=== PATIENT | female | born 1985 | race Caucasian/White ===

== ENCOUNTER 2016-05-12 11:52 | Emergency (ER) | payer SELFPAY ==
--- NOTE | 2016-05-12 13:06 | ED.PDOC ---
History of Present Illness - General Chief Complaint: Back Pain or Injury Stated Complaint: ran out of medications Time Seen by Provider: 05/12/16 13:03 Source: patient Exam Limitations: no limitations - History of Present Illness Initial Comments: Stated has chronic back pain due to scoliosis and ran out of medication stated just visiting here in town. Timing/Duration: other - chronic back ache has history of scoliosis Quality/Severity: moderate, radiation - none, sharpness Back Pain Location: T-spine, lumbar spine Method of Injury/Prior Injury: other - history of scoliosis Improving Factors: rest Worsening Factors: movement Associated Symptoms: muscle spasms Allergies/Adverse Reactions: Allergies Penicillins Allergy (Unknown, Verified 11/28/14 11:34) Home Medications: Ambulatory Orders Ondansetron [Zofran Odt] 4 mg PO BID PRN #7 tab 11/28/14 Acetaminophen W/ Codeine [Tylenol w/Codeine 300-30 mg] 1 tab PO Q6HRS PRN #10 tab 05/12/16 Cyclobenzaprine HCl [Flexeril] 5 mg PO BID PRN #10 tab 05/12/16 Review of Systems - Review of Systems Constitutional: States: no symptoms reported EENTM: States: no symptoms reported Respiratory: States: no symptoms reported Cardiology: States: no symptoms reported Gastrointestinal/Abdominal: States: no symptoms reported Genitourinary: States: other - no bowel or bladder dysfunction Musculoskeletal: States: back pain - chronic due to scoliosis Skin: States: no symptoms reported Neurological: States: no symptoms reported Endocrine: States: no symptoms reported Hematologic/Lymphatic: States: no symptoms reported Past Medical History (General) - Patient Medical History Hx Seizures: No Hx Stroke: No Hx Dementia: No Hx Asthma: No Hx of COPD: No Hx Cardiac Disorders: No Hx Congestive Heart Failure: No Hx Pacemaker: No Hx Hypertension: No Hx Thyroid Disease: No Hx Diabetes: No Hx Gastroesophageal Reflux: No Hx Renal Disease: No Hx Cancer: No Hx of HIV: No Hx Hepatitis C: No Hx MRSA: No Surgical History: no surgical history - Vaccination History Hx Tetanus, Diphtheria Vaccination: No Hx Influenza Vaccination: No Hx Pneumococcal Vaccination: No - Social History Hx Tobacco Use: No Hx Chewing Tobacco Use: No Hx Alcohol Use: No Hx Substance Use: No Hx Substance Use Treatment: No Hx Depression: No Hx Physical Abuse: No Hx Emotional Abuse: No - Female History Patient is a Female of Child Bearing Age (10 -59 yrs old): Yes Hx Last Menstrual Period: 05/12/16 - Patient on hormone therapy for DUB Patient : No Expected Date of Delivery:: 11/10/13 Family Medical History - Family History Mother Family History: No Known Living Status: Still Living Physical Exam - Physical Exam General Appearance: Alert, Comfortable, No apparent distress, Other - ambulatory Eyes, Ears, Nose, Throat Exam: PERRL/EOMI, normal ENT inspection, TMs normal, pharynx normal Neck Exam: non-tender, full range of motion, normal alignment, normal inspection Cardiovascular/Respiratory: regular rate, rhythm, no M/R/G, normal peripheral pulses, no JVD, normal breath sounds Peripheral Pulses: radial,right: 2+, radial,left: 2+ Gastrointestinal/Abdominal: normal bowel sounds, non tender, soft Back Exam: no CVA tenderness, no vertebral tenderness, muscle spasm - mild Extremity Exam: no evidence of injury, normal range of motion, non-tender Neurologic: no motor/sensory deficits, alert, normal mood/affect, oriented x 3 Skin Exam: normal color, warm/dry Departure - Departure Clinical Impression: Back ache Qualifiers: Back pain location: low back pain Back pain laterality: unspecified Sciatica presence: without sciatica Qualifier Code: (M54.5) Low back pain Scoliosis, unspecified Qualifiers: Scoliosis type: unspecified scoliosis Spinal region: thoracolumbar Qualifier Code: (M41.9) Scoliosis, unspecified Time of Disposition: 13:22 Disposition: Discharge to Home or Self Care Condition: Good Referrals: Sunny Cooley MD [Primary Care Provider] - 1-2 Weeks Prescriptions: Acetaminophen W/ Codeine [Tylenol w/Codeine 300-30 mg] 1 tab PO Q6HRS PRN #10 tab PRN Reason: Pain Cyclobenzaprine HCl [Flexeril] 5 mg PO BID PRN #10 tab PRN Reason: Muscle Spasms Home Medications: Ambulatory Orders Ondansetron [Zofran Odt] 4 mg PO BID PRN #7 tab 11/28/14 Acetaminophen W/ Codeine [Tylenol w/Codeine 300-30 mg] 1 tab PO Q6HRS PRN #10 tab 05/12/16 Cyclobenzaprine HCl [Flexeril] 5 mg PO BID PRN #10 tab 05/12/16
[2016-05-12 14:50] VITALS: BP 114/81; TEMP 97.2; O2SAT 97
== END 2016-05-12 14:51 | disposition home or self-care (01) ==
LOC: ER 11:52
DX: Z76.0 Encounter for issue of repeat prescription (principal); M41.9 Scoliosis, unspecified; M54.5 Low back pain; Z79.899 Other long term (current) drug therapy; Z88.0 Allergy status to penicillin

== ENCOUNTER 2016-09-26 02:41 | Emergency (ER) | payer MEDICAID ==
[2016-09-26 03:04] VITALS: O2SAT 99
[2016-09-26] MEDS: KETOROLAC TROMETHAMINE INJ 30 MG/ML VIAL IV ONE (03:48)
[2016-09-26] MEDS: FLUCONAZOLE 100 MG TAB PO ONE (03:48)
--- NOTE | 2016-09-26 04:21 | RAD ---
Procedure: XR ABDOMEN 2 VIEWS SUPINE ERECT Exam Date: 09/26/2016 Ordering Provider: Yair Aldridge Clinical Indication: pelvic pain 3 days Comparison: None Findings: Upright chest x-ray: Cardiac size is normal. Pulmonary vasculature is normal. Mediastinal and aortic contour normal. There is no consolidation or effusion. Flat and upright abdomen: There is no small or large bowel distention. There is no pneumoperitoneum. There are no suspicious calcifications. Pelvic phleboliths. There is no acute skeletal abnormality. Impression: 1. No acute findings. Electronically signed by: Morgan Levine MD 09/26/2016 4:21 AM CDT
[2016-09-26] MEDS ORDERED: LIDOCAINE 1% 10 ML VIAL INJ ONE (04:38)
--- NOTE | 2016-09-26 04:38 | ED.PDOC ---
History of Present Illness - General Chief Complaint: Abdominal Pain Stated Complaint: left abd pain Time Seen by Provider: 09/26/16 03:05 Source: patient Exam Limitations: no limitations - History of Present Illness Initial Comments: the patient is a 31-year-old female presenting to the emergency room secondary to pelvic pain for the last week. Possible mild increase in discharge. No fevers. No back pain. The pain is a little worseslightly to the left of midline at the right. She did have a day or 2 of diarrhea a couple of weeks ago and was given azithromycin for that. She's not had any further diarrhea. No fever. No dysuria. No frequency. Timing/Duration: 1 week Severity: moderate Improving Factors: nothing Worsening Factors: nothing Associated Symptoms: denies symptoms Allergies/Adverse Reactions: Allergies Penicillins Allergy (Unknown, Verified 11/28/14 11:34) Home Medications: Ambulatory Orders Ondansetron [Zofran Odt] 4 mg PO BID PRN #7 tab 11/28/14 Acetaminophen W/ Codeine [Acetaminophen/Codeine Stone] 1 tab PO Q6HR PRN 05/12/16 Cyclobenzaprine HCl 5 mg PO BID 05/12/16 Doxycycline Hyclate 100 mg PO BID #20 cap 09/26/16 Metronidazole 500 mg PO BID #20 tab 09/26/16 Review of Systems - Review of Systems Constitutional: States: no symptoms reported EENTM: States: no symptoms reported Respiratory: States: no symptoms reported Cardiology: States: no symptoms reported Gastrointestinal/Abdominal: States: abdominal pain Genitourinary: States: see HPI, pain Musculoskeletal: States: no symptoms reported Skin: States: no symptoms reported Neurological: States: no symptoms reported Endocrine: States: no symptoms reported All other Systems: No Change from Baseline Past Medical History (General) - Patient Medical History Hx Seizures: No Hx Stroke: No Hx Dementia: No Hx Asthma: No Hx of COPD: No Hx Cardiac Disorders: No Hx Congestive Heart Failure: No Hx Pacemaker: No Hx Hypertension: No Hx Thyroid Disease: No Hx Diabetes: No Hx Gastroesophageal Reflux: No Hx Renal Disease: No Hx Cancer: No Hx of HIV: No Hx Hepatitis C: No Hx MRSA: No Surgical History: appendectomy, other - Vaccination History Hx Tetanus, Diphtheria Vaccination: No Hx Influenza Vaccination: No Hx Pneumococcal Vaccination: No - Social History Hx Tobacco Use: Yes Hx Chewing Tobacco Use: No Hx Alcohol Use: No Hx Substance Use: No Hx Substance Use Treatment: No Hx Depression: No Hx Physical Abuse: No Hx Emotional Abuse: No Hx Suspected Abuse: No - Female History Hx Last Menstrual Period: 06/07/16 Patient : No Expected Date of Delivery:: 11/10/13 Family Medical History - Family History Mother Family History: No Known Living Status: Still Living Physical Exam - Physical Exam General Appearance: Alert, Comfortable, No apparent distress Eye Exam: bilateral normal Ears, Nose, Throat: hearing grossly normal, normal ENT inspection, normal pharynx Neck: full range of motion Respiratory: lungs clear, normal breath sounds, no respiratory distress, no accessory muscle use Cardiovascular/Chest: normal peripheral pulses, regular rate, rhythm, no edema Peripheral Pulses: radial,right: 2+, radial,left: 2+, dorsalis pedis,right: 2+, dorsalis pedis,left: 2+, posterior tibialis,right: 2+, posterior tibialis,left: 2+ Gastrointestinal/Abdominal: soft, other - the patient does have some discomfort to palpation over the suprapubic region a little more to the left ventricular right. No definite rebound or peritoneal signs. Rectal Exam: other - pelvic exam shows an obvious yeast infection. Mild cervical motion tenderness. The fundus is uncomfortable to palpation and is slightly tilted to the left. no definite palpable mass is found. 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 She has tested positive here for a yeast infection as well as Trichomonas and possibly bacterial vaginosis. Gonorrhea and chlamydia tests are send out tests. She is being treated empirically with a dose of Rocephin and being started on metronidazole and doxycycline. She will be placed on doxycycline and metronidazole for 10 days. She does need a test of cure with her primary care doctor before resuming sexual activity. Her partner needs to be tested and treated as well. If discomfort fails to improve with treatment then the patient will need additional imaging in the form of a pelvic ultrasound. She does understand this. She does have a history of ovarian cyst and irregular menses. She should follow up with her primary care doctor in a couple of days. ER warnings were given for any acute worsening. - Results/Orders Results/Orders: Laboratory Tests 09/26/16 09/26/16 09/26/16 03:00 03:00 03:09 WBC RBC Hgb Hct MCV MCH MCHC RDW Plt Count MPV Absolute Neuts (auto) Absolute Lymphs (auto) Absolute Monos (auto) Absolute Eos (auto) Absolute Basos (auto) Neutrophils % Lymphocytes % Monocytes % Eosinophils % Basophils % Sodium 136 Potassium 3.4 L Chloride 103 Carbon Dioxide 25 Anion Gap 11.4 L BUN 10 Creatinine 0.62 BUN/Creatinine Ratio 16.1 Random Glucose 86 Serum Osmolality 270.3 L Calcium 9.2 Total Bilirubin 0.9 AST 19 ALT 20 Alkaline Phosphatase 57 Serum Total Protein 7.3 Albumin 4.4 Globulin 2.9 Albumin/Globulin Ratio 1.5 Amylase 62 Lipase 31 Urine Color Yellow Urine Appearance Clear Urine pH 6.0 Ur Specific [place] <= 1.005 Urine Protein Negative Urine Glucose (UA) Negative Urine Ketones Negative Urine Blood Negative Urine Nitrite Negative Urine Bilirubin Negative Urine Urobilinogen 0.2 Ur Leukocyte Esterase Negative Urine RBC 0 Urine WBC 0-1 Ur Epithelial Cells 0 Urine Bacteria Rare Urine HCG, Qual Negative 09/26/16 03:10 WBC 12.5 H RBC 4.68 Hgb 14.6 Hct 42.9 MCV 91.8 MCH 31.2 H MCHC 34.0 RDW 13.8 Plt Count 194 MPV 9.1 Absolute Neuts (auto) 7.70 H Absolute Lymphs (auto) 3.80 H Absolute Monos (auto) 0.80 Absolute Eos (auto) 0.10 Absolute Basos (auto) 0.10 Neutrophils % 61.7 Lymphocytes % 30.9 Monocytes % 6.1 Eosinophils % 0.9 L Basophils % 0.4 Sodium Potassium Chloride Carbon Dioxide Anion Gap BUN Creatinine BUN/Creatinine Ratio Random Glucose Serum Osmolality Calcium Total Bilirubin AST ALT Alkaline Phosphatase Serum Total Protein Albumin Globulin Albumin/Globulin Ratio Amylase Lipase Urine Color Urine Appearance Urine pH Ur Specific [place] Urine Protein Urine Glucose (UA) Urine Ketones Urine Blood Urine Nitrite Urine Bilirubin Urine Urobilinogen Ur Leukocyte Esterase Urine RBC Urine WBC Ur Epithelial Cells Urine Bacteria Urine HCG, Qual wet prep is positive for Trichomonas, clue cells, and fungal components. GC chlamydia are sent out labs Departure - Departure Clinical Impression: Pelvic inflammatory disease, Trichomonal vaginitis Disposition: Discharge to Home or Self Care Condition: Fair Departure Forms: ED Discharge - Pt. Copy, Patient Portal Self Enrollment Instructions: DI for Pelvic Inflammatory Disease, DI for Trichomoniasis, DI for Vaginal Yeast Infection Diet: regular diet Activity: other - pelvic rest Prescriptions: Doxycycline Hyclate 100 mg PO BID #20 cap Metronidazole 500 mg PO BID #20 tab Home Medications: Ambulatory Orders Ondansetron [Zofran Odt] 4 mg PO BID PRN #7 tab 11/28/14 Acetaminophen W/ Codeine [Acetaminophen/Codeine Stone] 1 tab PO Q6HR PRN 05/12/16 Cyclobenzaprine HCl 5 mg PO BID 05/12/16 Doxycycline Hyclate 100 mg PO BID #20 cap 09/26/16 Metronidazole 500 mg PO BID #20 tab 09/26/16 Additional Instructions: the patient is a 31-year-old female presenting with what appears to be vaginitis and mild pelvic inflammatory disease. She has tested positive here for a yeast infection as well as Trichomonas and possibly bacterial vaginosis. Gonorrhea and chlamydia tests are send out tests. She is being treated empirically with a dose of Rocephin and being started on metronidazole and doxycycline. She will be placed on doxycycline and metronidazole for 10 days. She does need a test of cure with her primary care doctor before resuming sexual activity. Her partner needs to be tested and treated as well. If discomfort fails to improve with treatment then the patient will need additional imaging in the form of a pelvic ultrasound. She does understand this. She does have a history of ovarian cyst and irregular menses. She should follow up with her primary care doctor in a couple of days. ER warnings were given for any acute worsening. she does need to take the antibiotics with food to prevent stomach upset and avoid alcohol intake while on the antibiotics.
[2016-09-26] MEDS: metroNIDAZOLE 500 MG TAB PO ONE (04:45)
[2016-09-26] MEDS: DOXYCYCLINE HYCLATE CAP 100 MG CAP PO ONE (04:45)
[2016-09-26 04:54] VITALS: BP 119/71
[2016-09-26 05:17] VITALS: TEMP 97.8
== END 2016-09-26 05:16 | disposition home or self-care (01) ==
LOC: ER 02:41
DX: A59.01 Trichomonal vulvovaginitis (principal); N73.9 Female pelvic inflammatory disease, unspecified; Z87.891 Personal history of nicotine dependence; Z88.0 Allergy status to penicillin
CPT/HCPCS: 36415; 74020; 80053; 81001; 81025; 82150; 83690; 85025; 87210; 87491; 87591; J0696; J1885

== ENCOUNTER → 2016-11-02 | Outpatient (CLI) | payer MEDICAID ==
--- NOTE | 2016-11-05 20:07 | RAD ---
EXAM DESCRIPTION: Knee,Right 2 or More Views CLINICAL HISTORY: PAIN IN RT KNEE COMPARISON: None. TECHNIQUE: 3 views right FINDINGS: Minimal calcification is observed anterior and superior to the patella. No evidence of fracture is seen. No true joint effusion is detected. IMPRESSION: Minimal degenerative changes are observed. No fracturing is detected. Electronically signed by: Angelito King MD 11/05/2016 8:06 PM CDT Workstation: [id number]
== END | disposition home or self-care (01) ==
LOC: RAD 11:33
PROVIDERS: ATTEND Nurse Practitioner Family
DX: M25.561 Pain in right knee (principal)

== ENCOUNTER → 2016-11-24 | Outpatient (CLI) | payer OTHER | END | disposition home or self-care (01) | LOC: LAB.O 08:37 | DX: M25.562 Pain in left knee (principal); Z13.220 Encounter for screening for lipoid disorders; F32.9 Major depressive disorder, single episode, unspecified; R73.09 Other abnormal glucose ==

== ENCOUNTER → 2016-12-08 | Outpatient (CLI) | payer OTHER ==
--- NOTE | 2016-12-08 15:48 | US ---
EXAM DESCRIPTION: Gall Bladder CLINICAL HISTORY: 31 years Female, R10.11 COMPARISON: None. November 28, 2014 TECHNIQUE: Limited Abdominal Ultrasound FINDINGS: Limited abdominal sonography demonstrates a normal-appearing pancreas. The liver is homogeneous and echogenic and modestly enlarged at 17.5 cm consistent with fatty infiltration of the liver. Focal cystic or solid mass is not apparent. The gallbladder is normally distended with 2.4 mm gallbladder wall and 5.6 mm common duct. No stones or tenderness was noted. The right kidney measures 11.7 cm in length without cyst or mass or obstruction. Region of the vena cava is normal. No right upper quadrant ascites is noted. IMPRESSION: Hepatomegaly with diffuse fatty infiltration with otherwise normal right upper quadrant sonography. Electronically signed by: Blaine David MD 12/08/2016 3:46 PM CDT
== END | disposition home or self-care (01) ==
LOC: LAB.O 15:03
PROVIDERS: ATTEND Nurse Practitioner Family
DX: R10.11 Right upper quadrant pain (principal)

== ENCOUNTER 2016-12-10 17:59 | Emergency (ER) | payer OTHER ==
[2016-12-10] MEDS ORDERED: SODIUM CHLORIDE 0.9% 1000ML 1,000 ML ONE (19:45)
--- NOTE | 2016-12-10 20:14 | ED.PDOC ---
History of Present Illness - General Chief Complaint: Problem Stated Complaint: Continued ill feeling w/kidney infection Time Seen by Provider: 12/10/16 20:09 Source: patient Exam Limitations: no limitations - History of Present Illness Initial Comments: Bindu David 31 y/o female stated that she painful urination and right sharp low back pain 3 days ago and seen md treated for bladder infection with bactrim but stated not feeling better this time with low grade fever decided to come here. Timing/Duration: other - 3 days ago Quality: moderate Onset Location: suprapubic, right flank Radiation: none Activites at Onset: none Prior abdominal problems: none Sexual intercourse history: single partner Improving Factors: nothing Worsening Factors: nothing Associated Symptoms: denies symptoms Allergies/Adverse Reactions: Allergies Penicillins Allergy (Unknown, Verified 12/10/16 19:11) Home Medications: Ambulatory Orders Gabapentin 12/10/16 Sertraline HCl [Zoloft] 150 mg PO DAILY 12/10/16 Tramadol HCl 12/10/16 levoFLOXacin [Levaquin] 500 mg PO QDPC #10 tab 12/10/16 Review of Systems - Review of Systems Constitutional: States: see HPI EENTM: States: no symptoms reported Respiratory: States: no symptoms reported, cough Gastrointestinal/Abdominal: States: no symptoms reported Genitourinary: States: see HPI Past Medical History (General) - Patient Medical History Hx Seizures: No Hx Stroke: No Hx Dementia: No Hx Asthma: No Hx of COPD: No Hx Cardiac Disorders: No Hx Congestive Heart Failure: No Hx Pacemaker: No Hx Hypertension: No Hx Thyroid Disease: No Hx Diabetes: No Hx Gastroesophageal Reflux: No Hx Renal Disease: No Hx Cancer: No Hx of HIV: No Hx Hepatitis C: No Hx MRSA: No Surgical History: appendectomy, other - hysterectomy - Vaccination History Hx Tetanus, Diphtheria Vaccination: Yes Hx Influenza Vaccination: No Hx Pneumococcal Vaccination: Yes - Social History Hx Tobacco Use: Yes Hx Chewing Tobacco Use: No Hx Alcohol Use: No Hx Substance Use: No Hx Substance Use Treatment: No Hx Depression: No Hx Physical Abuse: No Hx Emotional Abuse: No Hx Suspected Abuse: No - Female History Patient is a Female of Child Bearing Age (10 -59 yrs old): Yes Hx Last Menstrual Period: 06/07/16 Patient : No Expected Date of Delivery:: 11/10/13 Family Medical History - Family History Mother Family History: No Known Living Status: Still Living Physical Exam - Physical Exam General Appearance: Alert, Comfortable, No apparent distress Eyes, Ears, Nose, Throat Exam: PERRL/EOMI, normal ENT inspection, pharynx normal Neck: non-tender, supple Cardiovascular/Respiratory: regular rate, rhythm, normal peripheral pulses, normal breath sounds Gastrointestinal/Abdominal: normal bowel sounds, non tender, soft, no organomegaly Back Exam: no vertebral tenderness, CVA tenderness (R) Extremity: non-tender, no pedal edema Neurologic: alert, oriented x 3 Skin Exam: normal color, warm/dry Lymphatic: no adenopathy Progress - Progress Progress: 12/10/16 20:23 Vital Signs - 8 hr 12/10/16 18:25 Temperature 100.9 F H Pulse Rate [ 129 H Left Radial] Respiratory 22 Rate Blood Pressure 137/89 [Left Arm] O2 Sat by Pulse 100 Oximetry - Results/Orders Results/Orders: Laboratory Tests 12/10/16 12/10/16 12/10/16 18:55 18:55 19:33 WBC 9.8 RBC 4.10 L Hgb 12.8 Hct 37.3 MCV 90.9 MCH 31.2 H MCHC 34.5 RDW 13.0 Plt Count 132 MPV 9.5 Absolute Neuts (auto) 8.70 H Absolute Lymphs (auto) 0.60 L Absolute Monos (auto) 0.50 Absolute Eos (auto) 0.00 Absolute Basos (auto) 0.00 Neutrophils % 88.7 H Lymphocytes % 6.1 L Monocytes % 4.8 Eosinophils % 0.1 L Basophils % 0.3 Sodium 136 Potassium 3.7 Chloride 102 Carbon Dioxide 26 Anion Gap 11.7 L Lactic Acid Calcium 9.2 Urine Color Yellow Urine Appearance Cloudy Urine pH 5.5 Ur Specific [place] 1.015 Urine Protein 100 H Urine Glucose (UA) Negative Urine Ketones Negative Urine Blood Moderate H Urine Nitrite Positive H Urine Bilirubin Negative Urine Urobilinogen 1.0 Ur Leukocyte Esterase Large H Urine RBC 1-3 Urine WBC >100 H Ur Epithelial Cells 1-3 Urine Bacteria 2+ H 12/10/16 20:40 WBC RBC Hgb Hct MCV MCH MCHC RDW Plt Count MPV Absolute Neuts (auto) Absolute Lymphs (auto) Absolute Monos (auto) Absolute Eos (auto) Absolute Basos (auto) Neutrophils % Lymphocytes % Monocytes % Eosinophils % Basophils % Sodium Potassium Chloride Carbon Dioxide Anion Gap Lactic Acid 1.6 Calcium Urine Color Urine Appearance Urine pH Ur Specific [place] Urine Protein Urine Glucose (UA) Urine Ketones Urine Blood Urine Nitrite Urine Bilirubin Urine Urobilinogen Ur Leukocyte Esterase Urine RBC Urine WBC Ur Epithelial Cells Urine Bacteria - EKG/XRAY/CT CT Ordered: Yes - Abd/p-mild perinephric kidney stranding;thickened urinary bladder Departure - Departure Clinical Impression: Urinary tract infection Qualifiers: Urinary tract infection type: site unspecified Hematuria presence: without hematuria Qualified Code(s): N39.0 - Urinary tract infection, site not specified Time of Disposition: 21:13 Disposition: Discharge to Home or Self Care Departure Forms: ED Discharge - Pt. Copy, Patient Portal Self Enrollment Instructions: Urinary Tract Infection, DI for Urinary Tract Infection (UTI) Referrals: Sue Lange C[employer] PRESS OPERATOR [Primary Care Provider] - 1-2 Weeks Prescriptions: levoFLOXacin [Levaquin] 500 mg PO QDPC #10 tab Home Medications: Ambulatory Orders Gabapentin 12/10/16 Sertraline HCl [Zoloft] 150 mg PO DAILY 12/10/16 Tramadol HCl 12/10/16 levoFLOXacin [Levaquin] 500 mg PO QDPC #10 tab 12/10/16 Additional Instructions: Follow up with primary md 12/12/2016 call for appointment;Tylenol 500 mg every 6 hours as needed for fever;Return to to emergency room if not better in 48 hours
[2016-12-10] MEDS ORDERED: levoFLOXacin 750MG IV 750 MG in PREMIX BAG 1 BAG IVPB ONE (20:17)
[2016-12-10] MEDS ORDERED: SODIUM CHLORIDE 0.9% 1000ML 1,000 ML IVS ONE (20:18)
--- NOTE | 2016-12-10 20:45 | CT ---
EXAM: CT abdomen and pelvis without contrast. INDICATION: Abdominal pain, acute. TECHNIQUE: Contiguous axial CT images of the abdomen and pelvis. Intravenous contrast: Absent. Oral contrast: Absent. Protocol: Renal stone. DLP 754 mGy-cm. This exam was performed according to our departmental dose-optimization program, which includes automated exposure control, adjustment of the mA and/or kV according to patient size and/or use of iterative reconstruction technique. COMPARISON: None. FINDINGS: Lower chest: Partially imaged. Lung bases: Unremarkable. Cardiac apex: Unremarkable. Solid abdominal viscera: Limited by lack of intravenous contrast. Liver: Unremarkable. Gallbladder: Unremarkable. Pancreas: Unremarkable. Spleen: Unremarkable. Adrenal glands: Unremarkable. Right kidney: No urolithiasis or hydronephrosis. There is mild, nonspecific stranding along the lower pole of the kidney. Left kidney: No urolithiasis or hydronephrosis. There is mild, nonspecific perinephric stranding. Urinary bladder: The schmidt of the urinary bladder measuring up to 7 mm in thickness Abdominal aorta: Unremarkable. Peritoneal: Free fluid: Trace Free air: None. Other: No pathologic sized lymph nodes in the upper abdomen. Bowel: Stomach: Unremarkable. Small bowel: Unremarkable. Appendix: Appendectomy Colon: Unremarkable. Rectum: Unremarkable. Uterus: Unremarkable. Bones: Unremarkable. IMPRESSION: Thickening of the urinary bladder, likely due to cystitis. Mild stranding along the lower pole of the right kidney and around most of the left kidney. These findings are nonspecific and may be related to pyelonephritis. Electronically signed by: Brad Morales MD 12/10/2016 8:44 PM CDT Workstation: [id number]
[2016-12-10] MEDS ORDERED: PROMETHAZINE HCL INJ 25 MG/ML VIAL IM ONE (21:11)
[2016-12-10] MEDS ORDERED: PROMETHAZINE TAB (ER DISP) 25 MG TAB PO ONE (21:12)
[2016-12-10] MEDS ORDERED: HYDROCOD/APAP 7.5/325 (ER DISP) #3 TAB PO ONE (21:12)
[2016-12-10 21:43] VITALS: BP 108/70; TEMP 103.9; O2SAT 98
== END 2016-12-10 21:45 | disposition home or self-care (01) ==
LOC: ER 17:59
DX: N39.0 Urinary tract infection, site not specified (principal); Z87.891 Personal history of nicotine dependence; Z88.0 Allergy status to penicillin
CPT/HCPCS: 36415; 74176; 80053; 81001; 83605; 85025; 86140; 87086; 87088; 87186; J1956; J2550; J7030; Q0169

== ENCOUNTER 2017-01-29 18:38 | Emergency (ER) | payer OTHER ==
[2017-01-29 19:40] VITALS: TEMP 98.3; O2SAT 98
--- NOTE | 2017-01-29 19:41 | ED.PDOC ---
History of Present Illness - General Chief Complaint: GI Problem Stated Complaint: diarrhea Time Seen by Provider: 01/29/17 19:40 Source: patient - History of Present Illness Initial Comments: Bindu David 31 y/o female stated that she had watery diarrhea multiple times since this am with abdominal cramps no nausea vomiting ate barbecue last night.No illcontact,no recent antibiotics,no travel outside country. Timing/Duration: constant Severity: moderate Improving Factors: nothing Worsening Factors: eating Associated Symptoms: other - see hpi Allergies/Adverse Reactions: Allergies Penicillins Allergy (Unknown, Verified 01/29/17 19:40) Home Medications: Ambulatory Orders Gabapentin 12/10/16 Sertraline HCl [Zoloft] 150 mg PO DAILY 12/10/16 Tramadol HCl 12/10/16 Hyoscyamine Sulfate [Levsin] 0.125 mg PO QID PRN #14 tab 01/29/17 Review of Systems - Review of Systems Constitutional: States: no symptoms reported EENTM: States: no symptoms reported Respiratory: States: no symptoms reported Cardiology: States: no symptoms reported Gastrointestinal/Abdominal: States: see HPI, diarrhea Genitourinary: States: no symptoms reported Past Medical History (General) - Patient Medical History Hx Seizures: No Hx Stroke: No Hx Dementia: No Hx Asthma: No Hx of COPD: No Hx Cardiac Disorders: No Hx Congestive Heart Failure: No Hx Pacemaker: No Hx Hypertension: No Hx Thyroid Disease: No Hx Diabetes: No Hx Gastroesophageal Reflux: No Hx Renal Disease: No Hx Cancer: No Hx of HIV: No Hx Hepatitis C: No Hx MRSA: No Surgical History: appendectomy, other - hysterectomy - Vaccination History Hx Tetanus, Diphtheria Vaccination: Yes Hx Influenza Vaccination: No Hx Pneumococcal Vaccination: No - Social History Hx Tobacco Use: Yes Hx Chewing Tobacco Use: No Hx Alcohol Use: No Hx Substance Use: No Hx Substance Use Treatment: No Hx Depression: No Hx Physical Abuse: No Hx Emotional Abuse: No Hx Suspected Abuse: No - Female History Hx Last Menstrual Period: 06/07/16 Patient : No Expected Date of Delivery:: 11/10/13 - Triage Comment ED Triage Comment: diarrhea "like dark water" today. abdominal pain Family Medical History - Family History Mother Family History: No Known Living Status: Still Living Physical Exam - Physical Exam General Appearance: Alert, No apparent distress Eye Exam: bilateral normal Ears, Nose, Throat: hearing grossly normal, normal pharynx Neck: non-tender, supple Respiratory: lungs clear, normal breath sounds Cardiovascular/Chest: normal peripheral pulses, regular rate, rhythm Peripheral Pulses: radial,right: 2+, radial,left: 2+ Gastrointestinal/Abdominal: normal bowel sounds, non tender, soft Back Exam: no CVA tenderness, no vertebral tenderness Neurologic: alert, normal mood/affect, oriented x 3 Skin Exam: normal color, warm/dry Lymphatic: no adenopathy Progress - Progress Progress: 01/29/17 23:19 Vital Signs - 8 hr 01/29/17 01/29/17 19:37 21:00 Temperature 98.3 F Pulse Rate [ 96 H 78 Left] Respiratory 18 18 Rate Blood Pressure 109/88 110/79 [Right Arm] O2 Sat by Pulse 98 Oximetry Departure - Departure Clinical Impression: Diarrhea Qualifiers: Diarrhea type: unspecified type Qualified Code(s): R19.7 - Diarrhea, unspecified Time of Disposition: 23:20 Disposition: Discharge to Home or Self Care Condition: Good Departure Forms: ED Discharge - Pt. Copy, Patient Portal Self Enrollment Instructions: Diarrhea (Alternative Therapy), Diarrhea, DI for Diarrhea and Traveler's Diarrhea -- Adult Diet: bland diet, other - BRAT DIET then to advance diet as tolerated;Avoid GREASY,SPICY,DAIRY FOODS until BETTER Referrals: Sue Lange DENTAL DETAIL REPRESENTATIVE [Primary Care Provider] - 1-2 Weeks Prescriptions: Hyoscyamine Sulfate [Levsin] 0.125 mg PO QID PRN #14 tab PRN Reason: Abdominal Cramping Home Medications: Ambulatory Orders Gabapentin 12/10/16 Sertraline HCl [Zoloft] 150 mg PO DAILY 12/10/16 Tramadol HCl 12/10/16 Hyoscyamine Sulfate [Levsin] 0.125 mg PO QID PRN #14 tab 01/29/17 Additional Instructions: Follow up with primary md 01/31/2017 call for appointment as needed
[2017-01-29] MEDS ORDERED: MORPHINE SULFATE INJ 10 MG/ML VIAL IV ONE (19:51)
[2017-01-29] MEDS ORDERED: PROMETHAZINE HCL INJ 25 MG/ML VIAL IM ONE (19:51)
[2017-01-29] MEDS ORDERED: LACTATED RINGERS 1,000 ML IVS ONE (19:51)
[2017-01-29] MEDS ORDERED: HYOSCYAMINE SULFATE ER 0.375 MG TAB PO ONE (21:32)
[2017-01-29] MEDS ORDERED: SODIUM CHLORIDE 0.9% 500ML 500 ML IVS ONE (21:51)
[2017-01-29 23:34] VITALS: BP 89/70
[2017-01-30] MEDS ORDERED: HYOSCYAMINE SULFATE ER 0.375 MG TAB PO SCH (09:00)
== END 2017-01-30 00:25 | disposition home or self-care (01) ==
LOC: ER 18:38
DX: R19.7 Diarrhea, unspecified (principal); Z87.891 Personal history of nicotine dependence; Z88.0 Allergy status to penicillin
CPT/HCPCS: 81001; J2270; J2550; J7040; J7120

== ENCOUNTER 2018-05-20 08:04 | Emergency (ER) | payer OTHER ==
[2018-05-20] MEDS ORDERED: KETOROLAC TROMETHAMINE INJ 30 MG/ML VIAL IM ONE (08:47)
--- NOTE | 2018-05-20 08:50 | ED.PDOC ---
History of Present Illness - General Chief Complaint: [employer] Problem Time Seen by Provider: 05/20/18 08:34 Source: patient Exam Limitations: no limitations - History of Present Illness Initial Comments: Patient presents with right sided pain for three days. She has a history of a right ovarian cyst and says that it feels exactly like that. It is aching in nature and constant but intermittent in intensity. She has been trying ibuprofen and meloxicam with minimal improvement. She has an appointment with Dr. Phelan in 3 days to plan definitive treatment but says she cannot wait because of the pain. She says tylenol #3 only makes her sleepy but that tramadol works for her. HX of BTL. No other complaints. Timing/Duration: other - 3 days Severity: moderate Improving Factors: nothing Worsening Factors: nothing Associated Symptoms: denies symptoms Allergies/Adverse Reactions: Allergies Penicillins Allergy (Unknown, Verified 01/29/17 19:40) Home Medications: Ambulatory Orders Gabapentin 12/10/16 Sertraline HCl [Zoloft] 150 mg PO DAILY 12/10/16 Tramadol HCl 12/10/16 Hyoscyamine Sulfate [Levsin] 0.125 mg PO QID PRN #14 tab 01/29/17 Tramadol HCl 50 mg PO Q6HRS #20 tab 05/20/18 Review of Systems - Review of Systems Constitutional: States: no symptoms reported EENTM: States: no symptoms reported Respiratory: States: no symptoms reported Cardiology: States: no symptoms reported Gastrointestinal/Abdominal: States: see HPI Genitourinary: States: see HPI Musculoskeletal: States: no symptoms reported Skin: States: no symptoms reported Neurological: States: no symptoms reported Endocrine: States: no symptoms reported Hematologic/Lymphatic: States: no symptoms reported Past Medical History (General) - Patient Medical History Hx Seizures: No Hx Stroke: No Hx Dementia: No Hx Asthma: No Hx of COPD: No Hx Cardiac Disorders: No Hx Congestive Heart Failure: No Hx Pacemaker: No Hx Hypertension: No Hx Thyroid Disease: No Hx Diabetes: No Hx Gastroesophageal Reflux: No Hx Renal Disease: No Hx Cancer: No Hx of HIV: No Hx Hepatitis C: No Hx MRSA: No - Vaccination History Hx Tetanus, Diphtheria Vaccination: Yes Hx Influenza Vaccination: No Hx Pneumococcal Vaccination: No - Social History Hx Tobacco Use: Yes Hx Chewing Tobacco Use: No Hx Alcohol Use: No Hx Substance Use: No Hx Substance Use Treatment: No Hx Depression: No Hx Physical Abuse: No Hx Emotional Abuse: No Hx Suspected Abuse: No - Female History Hx Last Menstrual Period: 06/07/16 Patient : No Expected Date of Delivery:: 11/10/13 Family Medical History - Family History Mother Family History: No Known Living Status: Still Living Physical Exam - Physical Exam General Appearance: Alert Respiratory: lungs clear, normal breath sounds Cardiovascular/Chest: normal peripheral pulses, regular rate, rhythm Gastrointestinal/Abdominal: normal bowel sounds, non tender, soft Back Exam: no CVA tenderness Skin Exam: normal color Lymphatic: no adenopathy Progress - Progress Progress: 05/20/18 08:51 Toradol 30 mg IM x one. RX for Tramadol sent. It was explained to the patient that we don't do gynecological surgeries in the [facility] and that her best option is to keep her appointment with Dr. Phelan in three days to plan definitive care. Care instructions given. E.R. warnings given. Questions were elicited and answered. Patient voiced understanding and agreement with the plan. Departure - Departure Clinical Impression: Benign ovarian cyst Disposition: Discharge to Home or Self Care Condition: Good Departure Forms: ED Discharge - Pt. Copy, Patient Portal Self Enrollment Instructions: DI for Ovarian Cyst Diet: resume usual diet Activity: increase activity as tolerated Referrals: Sue Lange NP [Primary Care Provider] - 1-2 Weeks Prescriptions: Tramadol HCl 50 mg PO Q6HRS #20 tab Home Medications: Ambulatory Orders Gabapentin 12/10/16 Sertraline HCl [Zoloft] 150 mg PO DAILY 12/10/16 Tramadol HCl 12/10/16 Hyoscyamine Sulfate [Levsin] 0.125 mg PO QID PRN #14 tab 01/29/17 Tramadol HCl 50 mg PO Q6HRS #20 tab 05/20/18 Additional Instructions: Take medication as prescribed. See Dr. Phelan on 05/23 as scheduled to discuss definitive care.
[2018-05-20 08:56] VITALS: TEMP 98.4
[2018-05-20 09:32] VITALS: BP 126/60; O2SAT 97
== END 2018-05-20 09:20 | disposition home or self-care (01) ==
LOC: ER 08:04
DX: N83.201 Unspecified ovarian cyst, right side (principal); Z87.891 Personal history of nicotine dependence; Z88.0 Allergy status to penicillin
CPT/HCPCS: 81001; 81025; J1885

== ENCOUNTER → 2018-07-18 | Outpatient (CLI) | payer OTHER ==
--- NOTE | 2018-07-18 17:52 | US ---
EXAM DESCRIPTION: Pelvis Transvaginal: Ultrasound. CLINICAL HISTORY: PELVIC PAIN COMPARISON: CT scan of the abdomen and pelvis 12/10/2016. TECHNIQUE: Trans-pelvic scanning through the urine-filled bladder and endovaginal scanning; color Doppler and villegas-scale modes. FINDINGS: Uterus 8.1 x 4.1 x 5.1 cm. 88.3 mL. Endometrial thickness 5.5 mm. Myometrium appears homogeneous . Uterus not retroverted.. Cervix small cyst.. Cul-de-sac contains no fluid. Right ovary 3.4 x 2.3 x 3.1 cm. 12.6 mL. Normal waveform and color vascularity by Doppler. Simple follicles but no cysts. No adnexal mass or free fluid. Left ovary 3.1 x 3.1 x 2.6 cm. 13.2 mL. Normal waveform and color Vascularity by Doppler. Multiple follicles but no cysts. Largest follicle 1.3 cm. No adnexal mass or free fluid. IMPRESSION: 1. Normal size and position of uterus. Endometrium normal thickness or borderline thickened depending on patient's menstrual status. Small nabothian cyst in the cervix. No fluid in the cul-de-sac 2. Bilateral ovaries upper normal limits in size with multiple follicles. Largest follicle is a 1.3 cm simple follicle in the left ovary. No adnexal mass or fluid. Electronically signed by: Lion Smith MD 07/18/2018 5:49 PM CDT
== END ==
LOC: US 13:30
PROVIDERS: ATTEND Obstetrics & Gynecology
DX: N88.8 Other specified noninflammatory disorders of cervix uteri (principal)